=== PATIENT | male | born 1980 | race Caucasian/White ===

== ENCOUNTER 2017-12-31 13:44 | Emergency (ER) | payer OTHER, SELFPAY ==
[2017-12-31 13:56] VITALS: BP 121/75; PULSE 68; RESP 14; TEMP 36.2; O2SAT 97; BMI 27.5
--- NOTE | 2017-12-31 13:58 | DI.RAD.S_ITS ---
PROCEDURE: XR CHEST 2V INDICATIONS: injury TECHNIQUE: 2 views of the chest were acquired. COMPARISON: [facility], , CHEST 2 VIEW, 11/16/2016, 17:49. FINDINGS: Surgical changes and devices: None. Lungs and pleura: No pleural effusions or pneumothorax. Lungs are clear. Mediastinum: Mediastinal contours are normal. Heart size is normal. Bones and chest wall: No suspicious bony abnormalities. Soft tissues appear unremarkable. IMPRESSION: No, found. Dictated by: Jong Portillo M.D. on 12/31/2017 at 14:29 Approved by: Jong Portillo M.D. on 12/31/2017 at 14:29
[2017-12-31 15:00] VITALS: BP 126/72; PULSE 59; O2SAT 97
--- NOTE | 2017-12-31 15:29 | ED.SOB ---
HPI - SOB/Dyspnea <KRYSTLE ThompsonW. D. [facility] - Last Filed: 12/31/17 22:28> General Chief Complaint: Shortness of Breath/Dyspnea Stated Complaint: DROPPED BARBELL ON CHEST, HAVING TROUBLE BREATHING Time Seen by Provider: 12/31/17 14:55 Source: patient Mode of arrival: ambulatory Limitations: no limitations History of Present Illness Patient presents after dropping 300 lb barbell on chest during bench press. States he is having some pain on his left right lower ribs, pain in his left upper abdomen and that it hurts to breathe. He denies any lightheadedness dizziness, any other pain. He denies any cough, severe medical history. He is worried that he broke some ribs. He is requesting an x-ray. He has not taken any medication as he took some ibuprofen this morning. He has applied ice to the area. Related Data Home Medications Medication Instructions Recorded Confirmed acetaminophen 500 mg PO PRN PRN #0 11/16/16 ibuprofen 200 mg PO PRN PRN #0 11/16/16 Previous Rx's Medication Instructions Recorded acetaminophen-codeine 1 tab PO Q4-6H PRN #7 tab 12/31/17 [Tylenol-Codeine #3] Allergies Allergy/AdvReac Type Severity Reaction Status Date / Time terbinafine [From LAMISIL] Allergy Unknown Verified 12/31/17 13:56 Review of Systems <[facility] Last Filed: 12/31/17 22:28> Review of Systems GENERAL: Denies chills, fatigue, malaise, fever, sweats. HEENT: Denies sinus pain, ear pain, sore throat, difficulty swallowing, dizziness. RESPIRATORY: See HPI CARDIOVASCULAR: Denies chest pain, palpitations, orthopnea, edema, GASTROINTESTINAL: Denies nausea, vomiting, abdominal pain, diarrhea, constipation, melena. : Denies dysuria, frequency, incontinence, hematuria, urinary retention. MUSCULOSKELETAL: See HPI SKIN: Denies rash, skin lesions, or other NEUROLOGIC: Denies weakness, headache, numbness, change in speech, confusion, seizures, incoordination. PSYCHIATRIC: No concerning psychosocial issues. 12 point review of systems is negative except for those stated above Exam <[facility] - Last Filed: 12/31/17 22:28> Narrative Exam Narrative: GENERAL: This is a well-nourished, well-developed patient, appears uncomfortable HEAD: Atraumatic. Normocephalic. No temporal or scalp tenderness. EYES: Pupils equal round and reactive. Extraocular motions intact. No scleral icterus. No injection or drainage. ENT: Nose without bleeding, purulent drainage or septal hematoma. Throat without erythema, tonsillar hypertrophy or exudate. Uvula midline. Airway patent. NECK: Trachea midline. No JVD or lymphadenopathy. Supple, nontender, no meningeal signs. CARDIOVASCULAR: Regular rate and rhythm without murmurs, gallops, or rubs. RESPIRATORY: Clear to auscultation. Breath sounds equal bilaterally. No wheezes, rales, or rhonchi. Pain to palpation of left lower ribs. No pain on anterior posterior compression. No pain on lateral chest wall compression. No cough noted. GASTROINTESTINAL: Abdomen soft, nondistended. No hepato-splenomegaly, or palpable masses. No guarding. Pain in the left upper quadrant to palpation. No pain right upper quadrant, right lower quadrant or left lower quadrant. EXTREMITIES: No clubbing, cyanosis, or edema. No joint tenderness, effusion, or edema noted. BACK: Nontender without deformity or crepitance. No flank tenderness. NEURO: AOx3. SKIN: Slight ecchymosis noted to left lower ribs. Initial Vital Signs Initial Vital Signs: Vital Signs Temperature 97.1 F L 12/31/17 13:56 Pulse Rate 68 12/31/17 13:56 Respiratory Rate 14 12/31/17 13:56 Blood Pressure 121/75 12/31/17 13:56 Pulse Oximetry 97 12/31/17 13:56 <Chelly Bingham DO - Last Filed: 01/02/18 14:50> Initial Vital Signs Initial Vital Signs: Vital Signs Temperature 97.1 F L 12/31/17 13:56 Pulse Rate 68 12/31/17 13:56 Respiratory Rate 14 12/31/17 13:56 Blood Pressure 121/75 12/31/17 13:56 Pulse Oximetry 97 12/31/17 13:56 Course <KRYSTLE Thompson-BC - Last Filed: 12/31/17 22:28> Additional Information: A checked on the patient several times for his emergency department stay. Orders Ordered: Discontinued Medications Sodium Chloride (Normal Saline 0.9%) 1,000 mls @ 1,000 mls/hr IV BOLUS ONE Stop: 12/31/17 16:50 Last Infusion: 12/31/17 18:06 Dose: 0 mls/hr Admin: 12/31/17 16:04 Dose: 1,000 mls/hr Ketorolac Tromethamine (Toradol) 30 mg IV NOW ONE Stop: 12/31/17 15:52 Last Admin: 12/31/17 16:04 Dose: 30 mg Morphine Sulfate (Morphine) 4 mg IV NOW ONE Stop: 12/31/17 17:13 Last Admin: 12/31/17 17:29 Dose: 4 mg Vital Signs - 8 hr 12/31/17 15:00 12/31/17 17:00 12/31/17 18:00 Pulse Rate 59 L 78 66 Respiratory Rate 20 Blood Pressure [Right Arm] 126/72 111/77 120/79 Pulse Oximetry 97 98 98 <Chelly Bingham DO - Last Filed: 01/02/18 14:50> Orders Ordered: Discontinued Medications Sodium Chloride (Normal Saline 0.9%) 1,000 mls @ 1,000 mls/hr IV BOLUS ONE Stop: 12/31/17 16:50 Last Infusion: 12/31/17 18:06 Dose: 0 mls/hr Admin: 12/31/17 16:04 Dose: 1,000 mls/hr Ketorolac Tromethamine (Toradol) 30 mg IV NOW ONE Stop: 12/31/17 15:52 Last Admin: 12/31/17 16:04 Dose: 30 mg Morphine Sulfate (Morphine) 4 mg IV NOW ONE Stop: 12/31/17 17:13 Last Admin: 12/31/17 17:29 Dose: 4 mg Vital Signs - 8 hr 12/31/17 15:00 12/31/17 17:00 12/31/17 18:00 Pulse Rate 59 L 78 66 Respiratory Rate 20 Blood Pressure [Right Arm] 126/72 111/77 120/79 Pulse Oximetry 97 98 98 MDM - SOB/Dyspnea <JONATHAN Thompson - Last Filed: 12/31/17 22:28> Lab Data Attestation: I reviewed the patient's lab results. Result diagrams: 12/31/17 15:55 12/31/17 15:55 Lab Results 12/31/17 12/31/17 Range/Units 15:55 15:55 WBC 7.6 (4.5-11.0) X10^3/uL RBC 4.83 (4.5-5.9) X10^6/uL Hgb 14.6 (13.5-17.5) g/dL Hct 42.4 (41-53) % MCV 87.8 (80-100) fL MCH 30.3 (26-34) PG MCHC 34.5 (30-36) % RDW 12.7 (11.6-14.8) % Plt Count 168 (150-400) X10^3/uL Neut % (Auto) 59.0 (50-75) % Lymph % (Auto) 29.8 (25-40) % Frio % (Auto) 9.4 (3-14) % Eos % (Auto) 1.0 L (2-4) % Baso % (Auto) 0.8 (0-2) % Neut # (Auto) 4500 (4004-8793) /uL Sodium 144 (137-145) mmol/L Potassium 4.2 (3.4-5.1) mmol/L Chloride 107 (98-107) mmol/L Carbon Dioxide 27 (22-32) mmol/L BUN 19 (9-20) mg/dL Creatinine 1.10 (0.66-1.25) mg/dL Estimated GFR > 60.0 (>60) mL/min BUN/Creatinine Ratio 17.3 (6-22) Glucose 84 (70-100) mg/dL Calcium 9.2 (8.4-10.2) mg/dL Total Bilirubin 0.5 (0.2-1.3) mg/dL AST 37 (17-59) IU/L ALT 41 (21-72) IU/L Alkaline Phosphatase 57 (38-126) U/L Total Protein 7.5 (6.3-8.2) g/dL Albumin 4.5 (3.5-5.0) g/dL Globulin 3.0 (1.7-4.1) g/dL Albumin/Globulin Ratio 1.5 (1.0-2.8) Urine Dip Bedside Urine Glucose Negative Bedside Urine Bilirubin - Negative Bedside Urine Ketone - Negative Urine Specific Orwell 1.015 Bedside Urine Occult Blood - Negative Bedside Urine pH 6.0 Bedside Urine Protein - Negative Bedside Urine Urobilinogen - Negative Bedside Urine Nitrite - Negative Bedside Urine Leukocytes - Negative Esterase Imaging Data CT scan - abdomen: Radiologist's impression: [address] [address] [address] Scan Report Signed Patient: Vidal Teixeira MR#: [id number] : 1980 Acct:[id number] Age/Sex: 37 / M Date of Service: 12/31/17 Loc: ED Accession Number: [id number] Procedure: CT abdomen pelvis w con Ordering Provider: Danii Vasquez-CAMILA PROCEDURE: CT ABDOMEN PELVIS W CON INDICATIONS: LUQ pain TECHNIQUE: After the administration of intravenous contrast, 5 mm thick sections acquired from the diaphragm to the symphysis. 5 mm coronal and sagittal reformats were acquired. For radiation dose reduction, the following was used: automated exposure control, adjustment of mA and/or kV according to patient size. COMPARISON: None. FINDINGS: Image quality: Excellent. ABDOMEN: Lung bases: Lung bases are clear. Heart size is normal. Solid organs: Liver is normal in size and enhancement. Gallbladder appears normal. Biliary system is non dilated. Pancreas enhances normally. Spleen is normal in size and enhancement. No adrenal nodules. Kidneys demonstrate normal size and enhancement, without hydronephrosis. Peritoneum and bowel: Bowel loops demonstrate normal wall thickness and caliber. No free fluid or air. Nodes and vessels: No retroperitoneal or mesenteric adenopathy by size criteria. Aorta and inferior vena cava are normal in size. Miscellaneous: No ventral hernias. PELVIS: Genitourinary: Bladder wall thickness is normal. Miscellaneous: No inguinal hernias or adenopathy. Bones: No suspicious bony lesions. No vertebral body compression fractures. IMPRESSION: No trauma found. Dictated by: Jong Portillo M.D. on 12/31/2017 at 17:26 Approved by: Jong Portillo M.D. on 12/31/2017 at 17:27 Chest x-ray: Radiologist's impression: [address] [address] XRay Report Signed Patient: Vidal Teixeira MR#: [id number] : 1980 Acct:[id number] Age/Sex: 37 / M Date of Service: 12/31/17 Loc: ED Accession Number: [id number] Procedure: XR chest 2V Ordering Provider: Chelly Bingham D.O. PROCEDURE: XR CHEST 2V INDICATIONS: injury TECHNIQUE: 2 views of the chest were acquired. COMPARISON: [facility], CHEST 2 VIEW, 11/16/2016, 17:49. FINDINGS: Surgical changes and devices: None. Lungs and pleura: No pleural effusions or pneumothorax. Lungs are clear. Mediastinum: Mediastinal contours are normal. Heart size is normal. Bones and chest wall: No suspicious bony abnormalities. Soft tissues appear unremarkable. IMPRESSION: No, found. Dictated by: Jong Portillo M.D. on 12/31/2017 at 14:29 Approved by: Jong Portillo M.D. on 12/31/2017 at 14:29 [facility] Narrative Medical decision making narrative: The patient presented with pain in his chest and abdomen after dropping a 300 lb barbell on himself. He had a negative chest x-ray that did not illustrated any fractures. He did complain of some severe left upper quadrant pain from the barbell bouncing. I did CT his abdomen to rule out any bleed or splenic injury. He was treated with morphine for pain in the emergency department. I did discharge him with some pain medication prescription due to his mechanism of injury in significant pain. I discussed at length follow up with primary care if needed. I also discussed coming back to the emergency department for any sign of chest pain shortness of breath her acute concerns. Patient had no questions or concerns upon discharge. <Chelly Bingham, DO - Last Filed: 01/02/18 14:50> Lab Data Lab Results 12/31/17 12/31/17 Range/Units 15:55 15:55 WBC 7.6 (4.5-11.0) X10^3/uL RBC 4.83 (4.5-5.9) X10^6/uL Hgb 14.6 (13.5-17.5) g/dL Hct 42.4 (41-53) % MCV 87.8 (80-100) fL MCH 30.3 (26-34) PG MCHC 34.5 (30-36) % RDW 12.7 (11.6-14.8) % Plt Count 168 (150-400) X10^3/uL Neut % (Auto) 59.0 (50-75) % Lymph % (Auto) 29.8 (25-40) % Frio % (Auto) 9.4 (3-14) % Eos % (Auto) 1.0 L (2-4) % Baso % (Auto) 0.8 (0-2) % Neut # (Auto) 4500 (9134-4289) /uL Sodium 144 (137-145) mmol/L Potassium 4.2 (3.4-5.1) mmol/L Chloride 107 (98-107) mmol/L Carbon Dioxide 27 (22-32) mmol/L BUN 19 (9-20) mg/dL Creatinine 1.10 (0.66-1.25) mg/dL Estimated GFR > 60.0 (>60) mL/min BUN/Creatinine Ratio 17.3 (6-22) Glucose 84 (70-100) mg/dL Calcium 9.2 (8.4-10.2) mg/dL Total Bilirubin 0.5 (0.2-1.3) mg/dL AST 37 (17-59) IU/L ALT 41 (21-72) IU/L Alkaline Phosphatase 57 (38-126) U/L Total Protein 7.5 (6.3-8.2) g/dL Albumin 4.5 (3.5-5.0) g/dL Globulin 3.0 (1.7-4.1) g/dL Albumin/Globulin Ratio 1.5 (1.0-2.8) Urine Dip Bedside Urine Glucose Negative Bedside Urine Bilirubin - Negative Bedside Urine Ketone - Negative Urine Specific Orwell 1.015 Bedside Urine Occult Blood - Negative Bedside Urine pH 6.0 Bedside Urine Protein - Negative Bedside Urine Urobilinogen - Negative Bedside Urine Nitrite - Negative Bedside Urine Leukocytes - Negative Esterase Discharge Plan Departure Patient Disposition: Home Clinical Impression: Chest wall contusion Discharge Date/Time: 12/31/17 18:25 Interventions: ED Discharge Assessment Last Done: 12/31/17 18:25 Instructions: DI for Contusion, DI for Rib Contusion Activity Restrictions/Additional Instructions: Your x-ray and CT came back negative today, which is excellent news. I would like you to continue to take [id number] ibuprofen. Please do not take that for 6-8 hours after the Toradol you received in the emergency department. I am giving you a small prescription of Tylenol No. 3 for pain. This can be constipating, so drink lots of fluids and eat lots of fiber. I would like you to keep taking deep breaths. Rib contusions can take a long time to heal. Please follow-up with your primary care provider if you are worsening or not improving. Come back to the emergency department for any sided chest pain, shortness of breath or difficulty breathing. Come back for any acute belly pain, confusion, or acute concerns. Prescriptions: New acetaminophen-codeine [Tylenol-Codeine #3] 300-30 mg tablet 1 tab PO Q4-6H PRN (Reason: pain) Qty: 7 RF: 0 No Action acetaminophen 500 MG tablet 500 mg PO PRN PRNQty: 0 RF: 0 ibuprofen 200 MG capsule 200 mg PO PRN PRNQty: 0 RF: 0 Referrals: Juarez Villanueva [Primary Care Provider] - <Chelly Bingham DO - Last Filed: 01/02/18 14:50> Cosign ED Attending Lvature Attestation: I was immediately available in the department for consultation. Documentation has been reviewed. I agree with assessment and plan.
--- NOTE | 2017-12-31 15:43 | DI.CT.S_ITS ---
PROCEDURE: CT ABDOMEN PELVIS W CON INDICATIONS: LUQ pain TECHNIQUE: After the administration of intravenous contrast, 5 mm thick sections acquired from the diaphragm to the symphysis. 5 mm coronal and sagittal reformats were acquired. For radiation dose reduction, the following was used: automated exposure control, adjustment of mA and/or kV according to patient size. COMPARISON: None. FINDINGS: Image quality: Excellent. ABDOMEN: Lung bases: Lung bases are clear. Heart size is normal. Solid organs: Liver is normal in size and enhancement. Gallbladder appears normal. Biliary system is non dilated. Pancreas enhances normally. Spleen is normal in size and enhancement. No adrenal nodules. Kidneys demonstrate normal size and enhancement, without hydronephrosis. Peritoneum and bowel: Bowel loops demonstrate normal wall thickness and caliber. No free fluid or air. Nodes and vessels: No retroperitoneal or mesenteric adenopathy by size criteria. Aorta and inferior vena cava are normal in size. Miscellaneous: No ventral hernias. PELVIS: Genitourinary: Bladder wall thickness is normal. Miscellaneous: No inguinal hernias or adenopathy. Bones: No suspicious bony lesions. No vertebral body compression fractures. IMPRESSION: No trauma found. Dictated by: Jong Portillo M.D. on 12/31/2017 at 17:26 Approved by: Jong Portillo M.D. on 12/31/2017 at 17:27
[2017-12-31] MEDS: SODIUM CHLORIDE 0.9% 1,000 ML 1000 ML IV (16:04)
[2017-12-31] MEDS: KETOROLAC 60 MG/2 ML VIAL 30 MG IV (16:04)
[2017-12-31 16:07] LABS: Add Manual Diff / Slide Review NO; Basophils Percent Auto 0.8 % (0-2); Hematocrit 42.4 % (41-53); Hemoglobin 14.6 g/dL (13.5-17.5); Lymphocytes Percent Auto 29.8 % (25-40); Mean Corpuscular HGB Conc 34.5 % (30-36); Mean Corpuscular Hemoglobin 30.3 PG (26-34); Mean Corpuscular Volume 87.8 fL (80-100); Monocytes Percent Auto 9.4 % (3-14); Neutrophils Absolute Auto 4500 /uL (3000-5900); Platelet Count 168 X10^3/uL (150-400); Red Blood Cell Count 4.83 X10^6/uL (4.5-5.9); Red Cell Distribution Width 12.7 % (11.6-14.8); White Blood Cell Count 7.6 X10^3/uL (4.5-11.0)
[2017-12-31 16:21] LABS: Alanine Aminotransferase 41 IU/L (21-72); Albumin 4.5 g/dL (3.5-5.0); Albumin Globulin Ratio 1.5 (1.0-2.8); Alkaline Phosphatase 57 U/L (38-126); Aspartate Aminotransferase 37 IU/L (17-59); BUN Creatinine Ratio 17.3 (6-22); Bilirubin Total 0.5 mg/dL (0.2-1.3); Blood Urea Nitrogen 19 mg/dL (9-20); Calcium 9.2 mg/dL (8.4-10.2); Carbon Dioxide 27 mmol/L (22-32); Chloride 107 mmol/L (98-107); Estimated Glomerular Filt Rate > 60.0 mL/min (>60); Glucose 84 mg/dL (70-100); HEMOLYSIS < 15 (0-50); Potassium 4.2 mmol/L (3.4-5.1); Sodium 144 mmol/L (137-145); Total Protein 7.5 g/dL (6.3-8.2)
[2017-12-31 17:00] VITALS: BP 111/77; PULSE 78; O2SAT 98
[2017-12-31] MEDS: MORPHINE 4 MG/ML INJ IV (17:29)
--- NOTE | 2017-12-31 17:39 | ED_ITS ---
HPI - SOB/Dyspnea <[facility] - Last Filed: 12/31/17 22:28> General Chief Complaint: Shortness of Breath/Dyspnea Stated Complaint: DROPPED BARBELL ON CHEST, HAVING TROUBLE BREATHING Time Seen by Provider: 12/31/17 14:55 Source: patient Mode of arrival: ambulatory Limitations: no limitations History of Present Illness Patient presents after dropping 300 lb barbell on chest during bench press. States he is having some pain on his left right lower ribs, pain in his left upper abdomen and that it hurts to breathe. He denies any lightheadedness dizziness, any other pain. He denies any cough, severe medical history. He is worried that he broke some ribs. He is requesting an x-ray. He has not taken any medication as he took some ibuprofen this morning. He has applied ice to the area. Related Data Home Medications Medication Instructions Recorded Confirmed acetaminophen 500 mg PO PRN PRN #0 11/16/16 ibuprofen 200 mg PO PRN PRN #0 11/16/16 Previous Rx's Medication Instructions Recorded acetaminophen-codeine 1 tab PO Q4-6H PRN #7 tab 12/31/17 [Tylenol-Codeine #3] Allergies Allergy/AdvReac Type Severity Reaction Status Date / Time terbinafine [From LAMISIL] Allergy Unknown Verified 12/31/17 13:56 Review of Systems [facility] Last Filed: 12/31/17 22:28> Review of Systems GENERAL: Denies chills, fatigue, malaise, fever, sweats. HEENT: Denies sinus pain, ear pain, sore throat, difficulty swallowing, dizziness. RESPIRATORY: See HPI CARDIOVASCULAR: Denies chest pain, palpitations, orthopnea, edema, GASTROINTESTINAL: Denies nausea, vomiting, abdominal pain, diarrhea, constipation, melena. : Denies dysuria, frequency, incontinence, hematuria, urinary retention. MUSCULOSKELETAL: See HPI SKIN: Denies rash, skin lesions, or other NEUROLOGIC: Denies weakness, headache, numbness, change in speech, confusion, seizures, incoordination. PSYCHIATRIC: No concerning psychosocial issues. 12 point review of systems is negative except for those stated above Exam <[facility] - Last Filed: 12/31/17 22:28> Narrative Exam Narrative: GENERAL: This is a well-nourished, well-developed patient, appears uncomfortable HEAD: Atraumatic. Normocephalic. No temporal or scalp tenderness. EYES: Pupils equal round and reactive. Extraocular motions intact. No scleral icterus. No injection or drainage. ENT: Nose without bleeding, purulent drainage or septal hematoma. Throat without erythema, tonsillar hypertrophy or exudate. Uvula midline. Airway patent. NECK: Trachea midline. No JVD or lymphadenopathy. Supple, nontender, no meningeal signs. CARDIOVASCULAR: Regular rate and rhythm without murmurs, gallops, or rubs. RESPIRATORY: Clear to auscultation. Breath sounds equal bilaterally. No wheezes , rales, or rhonchi. Pain to palpation of left lower ribs. No pain on anterior posterior compression. No pain on lateral chest wall compression. No cough noted. GASTROINTESTINAL: Abdomen soft, nondistended. No hepato-splenomegaly, or palpable masses. No guarding. Pain in the left upper quadrant to palpation. No pain right upper quadrant, right lower quadrant or left lower quadrant. EXTREMITIES: No clubbing, cyanosis, or edema. No joint tenderness, effusion, or edema noted. BACK: Nontender without deformity or crepitance. No flank tenderness. NEURO: AOx3. SKIN: Slight ecchymosis noted to left lower ribs. Initial Vital Signs Initial Vital Signs: Vital Signs Temperature 97.1 F L 12/31/17 13:56 Pulse Rate 68 12/31/17 13:56 Respiratory Rate 14 12/31/17 13:56 Blood Pressure 121/75 12/31/17 13:56 Pulse Oximetry 97 12/31/17 13:56 <Chelly Bingham DO - Last Filed: 01/02/18 14:50> Initial Vital Signs Initial Vital Signs: Vital Signs Temperature 97.1 F L 12/31/17 13:56 Pulse Rate 68 12/31/17 13:56 Respiratory Rate 14 12/31/17 13:56 Blood Pressure 121/75 12/31/17 13:56 Pulse Oximetry 97 12/31/17 13:56 Course <KRYSTLE [facility] - Last Filed: 12/31/17 22:28> Additional Information: A checked on the patient several times for his emergency department stay. Orders Ordered: Discontinued Medications Sodium Chloride (Normal Saline 0.9%) 1,000 mls @ 1,000 mls/hr IV BOLUS ONE Stop: 12/31/17 16:50 Last Infusion: 12/31/17 18:06 Dose: 0 mls/hr Admin: 12/31/17 16:04 Dose: 1,000 mls/hr Ketorolac Tromethamine (Toradol) 30 mg IV NOW ONE Stop: 12/31/17 15:52 Last Admin: 12/31/17 16:04 Dose: 30 mg Morphine Sulfate (Morphine) 4 mg IV NOW ONE Stop: 12/31/17 17:13 Last Admin: 12/31/17 17:29 Dose: 4 mg Vital Signs - 8 hr 12/31/17 15:00 12/31/17 17:00 12/31/17 18:00 Pulse Rate 59 L 78 66 Respiratory Rate 20 Blood Pressure [Right Arm] 126/72 111/77 120/79 Pulse Oximetry 97 98 98 <Chelly Bingham DO - Last Filed: 01/02/18 14:50> Orders Ordered: Discontinued Medications Sodium Chloride (Normal Saline 0.9%) 1,000 mls @ 1,000 mls/hr IV BOLUS ONE Stop: 12/31/17 16:50 Last Infusion: 12/31/17 18:06 Dose: 0 mls/hr Admin: 12/31/17 16:04 Dose: 1,000 mls/hr Ketorolac Tromethamine (Toradol) 30 mg IV NOW ONE Stop: 12/31/17 15:52 Last Admin: 12/31/17 16:04 Dose: 30 mg Morphine Sulfate (Morphine) 4 mg IV NOW ONE Stop: 12/31/17 17:13 Last Admin: 12/31/17 17:29 Dose: 4 mg Vital Signs - 8 hr 12/31/17 15:00 12/31/17 17:00 12/31/17 18:00 Pulse Rate 59 L 78 66 Respiratory Rate 20 Blood Pressure [Right Arm] 126/72 111/77 120/79 Pulse Oximetry 97 98 98 MDM - SOB/Dyspnea <JONATHAN Thompson - Last Filed: 12/31/17 22:28> Lab Data Attestation: I reviewed the patient's lab results. Result diagrams: 12/31/17 15:55 12/31/17 15:55 Lab Results 12/31/17 12/31/17 Range/Units 15:55 15:55 WBC 7.6 (4.5-11.0) X10^3/uL RBC 4.83 (4.5-5.9) X10^6/uL Hgb 14.6 (13.5-17.5) g/dL Hct 42.4 (41-53) % MCV 87.8 (80-100) fL MCH 30.3 (26-34) PG MCHC 34.5 (30-36) % RDW 12.7 (11.6-14.8) % Plt Count 168 (150-400) X10^3/uL Neut % (Auto) 59.0 (50-75) % Lymph % (Auto) 29.8 (25-40) % [place] % (Auto) 9.4 (3-14) % Eos % (Auto) 1.0 L (2-4) % Baso % (Auto) 0.8 (0-2) % Neut # (Auto) 4500 (7975-6920) /uL Sodium 144 (137-145) mmol/L Potassium 4.2 (3.4-5.1) mmol/L Chloride 107 (98-107) mmol/L Carbon Dioxide 27 (22-32) mmol/L BUN 19 (9-20) mg/dL Creatinine 1.10 (0.66-1.25) mg/dL Estimated GFR > 60.0 (>60) mL/min BUN/Creatinine Ratio 17.3 (6-22) Glucose 84 (70-100) mg/dL Calcium 9.2 (8.4-10.2) mg/dL Total Bilirubin 0.5 (0.2-1.3) mg/dL AST 37 (17-59) IU/L ALT 41 (21-72) IU/L Alkaline Phosphatase 57 (38-126) U/L Total Protein 7.5 (6.3-8.2) g/dL Albumin 4.5 (3.5-5.0) g/dL Globulin 3.0 (1.7-4.1) g/dL Albumin/Globulin Ratio 1.5 (1.0-2.8) Urine Dip Bedside Urine Glucose Negative Bedside Urine Bilirubin - Negative Bedside Urine Ketone - Negative Urine Specific [place] 1.015 Bedside Urine Occult Blood - Negative Bedside Urine pH 6.0 Bedside Urine Protein - Negative Bedside Urine Urobilinogen - Negative Bedside Urine Nitrite - Negative Bedside Urine Leukocytes - Negative Esterase Imaging Data CT scan - abdomen: Radiologist's impression: [address] [address] [address] Scan Report Signed Patient: Vidal Teixeira MR#: [id number] : 1980 Acct:[id number] Age/Sex: 37 / M Date of Service: 12/31/17 Loc: ED Accession Number: [id number] Procedure: CT abdomen pelvis w con Ordering Provider: Danii Vasquez-CAMILA PROCEDURE: CT ABDOMEN PELVIS W CON INDICATIONS: LUQ pain TECHNIQUE: After the administration of intravenous contrast, 5 mm thick sections acquired from the diaphragm to the symphysis. 5 mm coronal and sagittal reformats were acquired. For radiation dose reduction, the following was used: automated exposure control, adjustment of mA and/or kV according to patient size. COMPARISON: None. FINDINGS: Image quality: Excellent. ABDOMEN: Lung bases: Lung bases are clear. Heart size is normal. Solid organs: Liver is normal in size and enhancement. Gallbladder appears normal. Biliary system is non dilated. Pancreas enhances normally. Spleen is normal in size and enhancement. No adrenal nodules. Kidneys demonstrate normal size and enhancement, without hydronephrosis. Peritoneum and bowel: Bowel loops demonstrate normal wall thickness and caliber. No free fluid or air. Nodes and vessels: No retroperitoneal or mesenteric adenopathy by size criteria. Aorta and inferior vena cava are normal in size. Miscellaneous: No ventral hernias. PELVIS: Genitourinary: Bladder wall thickness is normal. Miscellaneous: No inguinal hernias or adenopathy. Bones: No suspicious bony lesions. No vertebral body compression fractures. IMPRESSION: No trauma found. Dictated by: Jong Portillo M.D. on 12/31/2017 at 17:26 Approved by: Jong Portillo M.D. on 12/31/2017 at 17:27 Chest x-ray: Radiologist's impression: [address] [address] XRay Report Signed Patient: Vidal Teixeira MR#: [id number] : 1980 Acct:[id number] Age/Sex: 37 / M Date of Service: 12/31/17 Loc: ED Accession Number: [id number] Procedure: XR chest 2V Ordering Provider: Chelly Bingham D.O. PROCEDURE: XR CHEST 2V INDICATIONS: injury TECHNIQUE: 2 views of the chest were acquired. COMPARISON: [facility], CHEST 2 VIEW, 11/16/2016, 17:49. FINDINGS: Surgical changes and devices: None. Lungs and pleura: No pleural effusions or pneumothorax. Lungs are clear. Mediastinum: Mediastinal contours are normal. Heart size is normal. Bones and chest wall: No suspicious bony abnormalities. Soft tissues appear unremarkable. IMPRESSION: No, found. Dictated by: Jong Portillo M.D. on 12/31/2017 at 14:29 Approved by: Jong Portillo M.D. on 12/31/2017 at 14:29 [facility] Narrative Medical decision making narrative: The patient presented with pain in his chest and abdomen after dropping a 300 lb barbell on himself. He had a negative chest x-ray that did not illustrated any fractures. He did complain of some severe left upper quadrant pain from the barbell bouncing. I did CT his abdomen to rule out any bleed or splenic injury. He was treated with morphine for pain in the emergency department. I did discharge him with some pain medication prescription due to his mechanism of injury in significant pain. I discussed at length follow up with primary care if needed. I also discussed coming back to the emergency department for any sign of chest pain shortness of breath her acute concerns. Patient had no questions or concerns upon discharge. <Chelly Bingham, DO - Last Filed: 01/02/18 14:50> Lab Data Lab Results 12/31/17 12/31/17 Range/Units 15:55 15:55 WBC 7.6 (4.5-11.0) X10^3/uL RBC 4.83 (4.5-5.9) X10^6/uL Hgb 14.6 (13.5-17.5) g/dL Hct 42.4 (41-53) % MCV 87.8 (80-100) fL MCH 30.3 (26-34) PG MCHC 34.5 (30-36) % RDW 12.7 (11.6-14.8) % Plt Count 168 (150-400) X10^3/uL Neut % (Auto) 59.0 (50-75) % Lymph % (Auto) 29.8 (25-40) % [place] % (Auto) 9.4 (3-14) % Eos % (Auto) 1.0 L (2-4) % Baso % (Auto) 0.8 (0-2) % Neut # (Auto) 4500 (3020-7897) /uL Sodium 144 (137-145) mmol/L Potassium 4.2 (3.4-5.1) mmol/L Chloride 107 (98-107) mmol/L Carbon Dioxide 27 (22-32) mmol/L BUN 19 (9-20) mg/dL Creatinine 1.10 (0.66-1.25) mg/dL Estimated GFR > 60.0 (>60) mL/min BUN/Creatinine Ratio 17.3 (6-22) Glucose 84 (70-100) mg/dL Calcium 9.2 (8.4-10.2) mg/dL Total Bilirubin 0.5 (0.2-1.3) mg/dL AST 37 (17-59) IU/L ALT 41 (21-72) IU/L Alkaline Phosphatase 57 (38-126) U/L Total Protein 7.5 (6.3-8.2) g/dL Albumin 4.5 (3.5-5.0) g/dL Globulin 3.0 (1.7-4.1) g/dL Albumin/Globulin Ratio 1.5 (1.0-2.8) Urine Dip Bedside Urine Glucose Negative Bedside Urine Bilirubin - Negative Bedside Urine Ketone - Negative Urine Specific [place] 1.015 Bedside Urine Occult Blood - Negative Bedside Urine pH 6.0 Bedside Urine Protein - Negative Bedside Urine Urobilinogen - Negative Bedside Urine Nitrite - Negative Bedside Urine Leukocytes - Negative Esterase Discharge Plan Departure Patient Disposition: Home Clinical Impression: Chest wall contusion Discharge Date/Time: 12/31/17 18:25 Interventions: ED Discharge Assessment Last Done: 12/31/17 18:25 Instructions: DI for Contusion, DI for Rib Contusion Activity Restrictions/Additional Instructions: Your x-ray and CT came back negative today, which is excellent news. I would like you to continue to take [id number] ibuprofen. Please do not take that for 6-8 hours after the Toradol you received in the emergency department. I am giving you a small prescription of Tylenol No. 3 for pain. This can be constipating, so drink lots of fluids and eat lots of fiber. I would like you to keep taking deep breaths. Rib contusions can take a long time to heal. Please follow-up with your primary care provider if you are worsening or not improving. Come back to the emergency department for any sided chest pain, shortness of breath or difficulty breathing. Come back for any acute belly pain , confusion, or acute concerns. Prescriptions: New acetaminophen-codeine [Tylenol-Codeine #3] 300-30 mg tablet 1 tab PO Q4-6H PRN (Reason: pain) Qty: 7 RF: 0 No Action acetaminophen 500 MG tablet 500 mg PO PRN PRNQty: 0 RF: 0 ibuprofen 200 MG capsule 200 mg PO PRN PRNQty: 0 RF: 0 Referrals: Juarez Villanueva [Primary Care Provider] - <Chelly Bingham DO - Last Filed: 01/02/18 14:50> Cosign ED Attending Lvature Attestation: I was immediately available in the department for consultation. Documentation has been reviewed. I agree with assessment and plan.
[2017-12-31 18:00] VITALS: BP 120/79; PULSE 66; RESP 20; O2SAT 98
== END 2017-12-31 18:25 | disposition home or self-care (01) ==
PROVIDERS: Emergency Provider Nurse Practitioner Family; PCP Student in an Organized Health Care Education/Training Program
DX: S20.219A Contusion of unspecified front wall of thorax, initial encounter (principal); W20.8XXA Other cause of strike by thrown, projected or falling object, initial encounter
CPT/HCPCS: 36591; 71046; 74177; 80053; 81003; 85025; 96361; 96374; 96375; 99283; 99285; J1885; J2270; Q9967

== ENCOUNTER → 2018-02-21 14:28 | Outpatient (CLI) | payer OTHER, SELFPAY ==
--- NOTE | 2018-02-21 | DI.MRI.S_ITS ---
PROCEDURE: MR KNEE LT WO CON INDICATIONS: LEFT KNEE PAIN TECHNIQUE: Noncontrast sagittal PD fast spin echo and T2 fast spin echo with fat saturation, sagittal 3-D FLASH with fat saturation; coronal T1 spin echo and PD fast spin echo with fat saturation, and axial PD fast spin echo with fat saturation through the knee. COMPARISON: None. FINDINGS: Image quality: Excellent. Menisci: The there is a complete tear of the posterior horn of the medial meniscus which extends into the body and the inferior articular surface (series 8, images 6-10; series 11 images 20-24) 6. There is a small, approximately 4 mm in maximum diameter parameniscal cyst associated with the medial meniscus tear (series 11, image 24). The lateral meniscus demonstrates normal morphology and internal signal. The meniscal root ligaments appear intact. Cruciate ligaments: The anterior and posterior cruciate ligaments appear intact. Medial structures: The medial collateral ligament appears intact. The posterior oblique ligament, semimembranosus tendon insertions, oblique popliteal ligament, and meniscocapsular junction appear intact. Visualized portions of the pes anserinus tendons appear normal. No abnormal bursal fluid. Lateral structures: The lateral collateral ligament, long and short heads of the biceps femoris tendon appear intact. The popliteus tendon appears normal; the popliteofibular ligament appears intact. The posterosuperior and anteroinferior popliteomeniscal fascicles appear intact. The arcuate and fabellofibular ligaments appear intact, on either side of the lateral inferior geniculate artery. Iliotibial band appears normal. Anterior structures: The quadriceps and patellar tendons appear intact. Patellar alignment is normal. No femoral trochlear dysplasia or ventral trochlear prominence. No edema in the infrapatellar fat pad. Bones and cartilage: No bone marrow contusions or fractures. The cartilage of the medial and lateral femorotibial compartments, as well as the patellofemoral compartment, appears normal in thickness. Joint space: There is physiologic knee joint fluid. No Paul's cyst. Normal appearing synovial plicae are incidentally noted. IMPRESSION: Flap tear of the posterior horn of the medial meniscus. Dictated by: Jasmina Giron MD, PhD on 02/21/2018 at 15:10 Approved by: Jasmina Giron MD, PhD on 02/22/2018 at 6:27
== END ==
PROVIDERS: PCP Student in an Organized Health Care Education/Training Program; Visit Provider Orthopaedic Surgery
DX: S83.242A Other tear of medial meniscus, current injury, left knee, initial encounter (principal); M25.562 Pain in left knee
CPT/HCPCS: 73721